=== PATIENT | female | born 1965 | race Caucasian/White ===

== ENCOUNTER → 2016-10-02 | Outpatient (CLI) | payer BC ==
[~2016-10-02] MED LIST: CETI1TAB14 PO; HYDR-4009 PO; LEVO50TA11 PO
--- NOTE | 2016-10-02 09:29 | DI ---
Indication: ITS.REASON: M25.562 PAIN IN LEFT KNEE PROCEDURE: MRI KNEE LEFT W/O CONTRAST: Encounter: Initial Comparison: None Technique: Multiplanar multisequence MR imaging of the left knee was performed without contrast. Findings: The lateral meniscus is intact. Medial meniscus is normal. The ACL and PCL are normal. The MCL and lateral collateral ligament complex are normal. The extensor mechanism is normal. No acute fracture. Bone marrow signal intensity is normal. The cartilage of the lateral compartment is normal. Medial compartment cartilage is normal. Patellofemoral compartment cartilage is within normal limits. No joint effusion or Booker's cyst. Muscular signal intensity is normal. Impression: Normal exam .
== END ==
LOC: IMA 07:20
PROVIDERS: ATTEND Orthopaedic Surgery
DX: M25.562 Pain in left knee (principal)